=== PATIENT | female | born 1950 | race Caucasian/White ===

== ENCOUNTER 2023-04-27 12:19 | Day surgery (SDC) | payer MEDICARE, OTHER ==
[~2023-04-27] VITALS: Ht 160 cm; Wt 97.7 kg
[~2023-04-27 12:19] MED LIST: AMOX500 PO; ASCO500 PO; CALCAVITD PO; HYDACE5 PO; MULVIT PO; ONDA8 PO; OXYACE5T PO; PRED20 PO; PROM25 PO
[2023-04-27] MEDS ORDERED: BUPR75 (13:03)
[2023-04-27 15:56] VITALS: BP 142/84
== END 2023-04-27 15:50 | disposition home or self-care (01) ==
LOC: ORSCSDS 12:19
PROVIDERS: Internal Medicine Gastroenterology
PROC: 0DBL8ZX Excision of Transverse Colon, Via Natural or Artificial Opening Endoscopic, Diagnostic (ICD-10-PCS; principal; 2023-04-27 13:45)
PROC: 0DBP8ZX Excision of Rectum, Via Natural or Artificial Opening Endoscopic, Diagnostic (ICD-10-PCS; principal; 2023-04-27 13:45)
PROC: 0DBN8ZX Excision of Sigmoid Colon, Via Natural or Artificial Opening Endoscopic, Diagnostic (ICD-10-PCS; principal; 2023-04-27 13:45)
PROC: 0DBM8ZX Excision of Descending Colon, Via Natural or Artificial Opening Endoscopic, Diagnostic (ICD-10-PCS; principal; 2023-04-27 13:45)
DX: Z12.11 Encounter for screening for malignant neoplasm of colon (principal); Z86.010 Personal history of colon polyps; D12.4 Benign neoplasm of descending colon; D12.3 Benign neoplasm of transverse colon; K63.5 Polyp of colon; K62.1 Rectal polyp; Z87.891 Personal history of nicotine dependence; Z68.39 Body mass index [BMI] 39.0-39.9, adult; E78.5 Hyperlipidemia, unspecified; I10 Essential (primary) hypertension; Z79.899 Other long term (current) drug therapy; Z79.82 Long term (current) use of aspirin
CPT/HCPCS: 88305; J2704; J7120

== ENCOUNTER 2024-01-25 08:31 | Day surgery (SDC) | payer MEDICARE, OTHER ==
[~2024-01-25] VITALS: Ht 160 cm; Wt 89.4 kg
[2024-01-25] VITALS (12 sets, daily range): BP systolic 108–170; BP diastolic 59–98
[~2024-01-25 08:31] MED LIST changes: +BUPR75; +FISH OIL 1,0001 EA10 PO; +Naltrexone HCl50 MG PO
[2024-01-25] MEDS ORDERED: Lactated Ringer's 1,000 ML IV SCH (09:30)
[2024-01-25] MEDS ORDERED: CeFAZolin Sodium 2,000 MG in NS 100 ML IV SCH (09:30)
[2024-01-25] MEDS ORDERED: DOC250 PO (09:36)
[2024-01-25] MEDS ORDERED: propofoL 20 ML IV ONE (09:42)
[2024-01-25] MEDS ORDERED: FentaNYL Citrate 50 MCG/ML 2 ML Injection ONE ×2 (09:44→11:59)
[2024-01-25] MEDS ORDERED: Rocuronium Bromide 10 MG/ML 5ML Injection IV ONE (09:45)
[2024-01-25] MEDS ORDERED: Midazolam HCl 1MG / ML 2ML Vial IV ONE (09:55)
[2024-01-25] MEDS ORDERED: Lidocaine HCl 1% 5 ML SYR INJ ONE (09:55)
[2024-01-25] MEDS ORDERED: FentaNYL Citrate 50 MCG/ML 2 ML Injection IV PRN ×2 (09:55)
[2024-01-25] MEDS ORDERED: Ondansetron HCl 2 MG / ML 2ML Vial IV PRN (09:55)
[2024-01-25] MEDS ORDERED: HYDROmorphone HCl/Pf 1MG SYR IV PRN (09:55)
--- NOTE | 2024-01-25 10:02 | NUR ---
History, Chart, Medications and Allergies reviewed before start of procedure. Patient confirms NPO status and agrees with scheduled surgery. Pre-Op teaching done. Pt verbalizes understanding. Patient reports completing Chlorhexadine shower X2 prior to admission to hospital. Lungs clear T/O to Auscultation. Patient States Post-Procedure ride home has been arranged.
[2024-01-25] MEDS ORDERED: Bupivacaine 0.5% Inj 10 ML Vial ONE (10:37)
[2024-01-25] MEDS ORDERED: Dexamethasone Sod Phos 10 MG/ML 1ML VIAL ONE (11:17)
[2024-01-25] MEDS ORDERED: Ondansetron HCl 2 MG / ML 2ML Vial ONE (11:17)
[2024-01-25] MEDS ORDERED: Sugammadex Sodium 200 MG/2ML SDV (100 MG/ML) ONE (11:36)
[2024-01-25] MEDS ORDERED: HYDROcodone 5-APAP 325 TAB PO PRN (12:25)
--- NOTE | 2024-01-25 13:38 | NUR ---
DISCHARGE NOTE PT A&OX4, BREATHING RA, TOLERATING PO FLUIDS AND FOOD, PAIN MEDICATION GIVEN PER MD ORDERS. Patient up to Ambulate independently. Gait steady. Discharge instructions reviewed with patient. Patient verbalizes understanding. Copy given to patient to take home. Dressing to procedure site clean, dry, intact with no visible drainage, swelling, erythema or bruising noted. Discharged via wheelchair to private car for ride home.GLASSES WITH PT UPON DISCHARGE
== END 2024-01-25 13:40 | disposition home or self-care (01) ==
LOC: ORSCMMR 08:31 → ORD 10:15 → ORSCMMR 13:40
PROVIDERS: Surgery
PROC: 0WUF0JZ Supplement Abdominal Wall with Synthetic Substitute, Open Approach (ICD-10-PCS; principal; 2024-01-25 10:15)
DX: K43.6 Other and unspecified ventral hernia with obstruction, without gangrene (principal); I10 Essential (primary) hypertension; F41.9 Anxiety disorder, unspecified; Z68.34 Body mass index [BMI] 34.0-34.9, adult; Z79.899 Other long term (current) drug therapy
CPT/HCPCS: A9270; C1781; J0690; J1100; J2250; J2405; J2704; J3010; J7120

== ENCOUNTER 2025-03-05 08:49 | Day surgery (SDC) | payer MEDICARE ==
[~2025-03-05] VITALS: Ht 157.5 cm; Wt 95.3 kg
[~2025-03-05 08:49] MED LIST changes: +AMLODIPINE-OLM1 EACH PO; +Balanced Salt Epinephrine Irrigation Solution 500 mL IR SCH; +DOC250 PO; +Moxifloxacin HCL 0.5 MG/0.1 ML 0.4MLSYR LEFTEYE SCH; +PHENYLEPHRINE\\TROPICAMIDE\\TETRACAINE OPHTHALMIC DILATING SOLN LEFTEYE PRN; +Povidone-Iodine 450 DROP/30 ML Solution LEFTEYE SCH; +Povidone-Iodine 450 DROP/30 ML Solution ONE; +Tetracaine HCl/Pf 0.5% Opth Soln 4 ml ONE
[2025-03-05] MEDS ORDERED: VITAMIN D350 MC3 PO (09:19)
[2025-03-05] MEDS ORDERED: NS 500 ML IV ONE (09:29)
[2025-03-05] MEDS ORDERED: Metoprolol Tartrate 5 ML IV ONE (09:57)
--- NOTE | 2025-03-05 10:09 | NUR ---
03/05/25 1009 STEF XIONG CRNA ORDERED EKG. RITA FLORES PT IS HAVIN A FLUTTER BUT EKG UNABLE TO GET A GOOD STRIP READING DUE TO PT MOVING. RECORDING STUDIO INTERN GAVE SOME MEDICATION TO LOWER PTS HR HR 134
[2025-03-05] MEDS ORDERED: Phenylephrine HCl 100 MCG/ML-NS 10MLSYR (1MG/10ML) ONE (10:21)
[2025-03-05 10:31] VITALS: BP 123/106
[2025-03-05] MEDS ORDERED: Diltiazem HCl 5 MG / ML 5ML Vial IV ONE (10:35)
[2025-03-05] MEDS ORDERED: DILT60ER PO (14:14)
[2025-03-05] MEDS ORDERED: ELIQUIS5 M2 PO (14:14)
== END 2025-03-05 10:44 | disposition other institution (70) ==
LOC: ORSCSDS 08:49
DX: H25.812 Combined forms of age-related cataract, left eye (principal); Z53.9 Procedure and treatment not carried out, unspecified reason; I48.91 Unspecified atrial fibrillation; I10 Essential (primary) hypertension; Z88.5 Allergy status to narcotic agent; Z79.899 Other long term (current) drug therapy
CPT/HCPCS: 71045; 80053; 83735; 83880; 84439; 84443; 84484; 85025; 93005; 93010; 96361; 96374; 99285-25; A9270; J2371; J7030